=== PATIENT | female | born 1960 | race Caucasian/White ===

== ENCOUNTER 2024-02-25 10:38 | Observation (INO) ==
[2024-02-25] MEDS: NS 0.9% 1000 ml BAG 1,000 ML IV ONE (11:41)
[2024-02-25 11:51] LABS: ABS Lymphocytes 0.4 10^3/uL (1.0-4.8); ABS Monocytes 0.4 10^3/uL (0.0-0.9); ABS Neutrophils 7.4 10^3/uL (1.5-7.6); Eosinophil % 0.1 %; Hematocrit 36.4 % (35-45); Hemoglobin 12.8 g/dL (11.5-14.3); Lymphocyte % 5.1 %; Mean Corpuscular Hemoglobin 31.9 pg (27-33); Mean Corpuscular Hgb Conc 35.2 g/dL (31-36); Mean Corpuscular Volume 90.7 fL (80-97); Mean Platelet Volume 7.7 fL (7.5-11.2); Platelet Count 270 10^3/uL (150-450); Red Blood Count 4.01 10^6/uL (3.63-4.92); Red Cell Distribution Width 13.2 % (12-17); White Blood Count 8.2 10^3/uL (3.8-11.8)
[2024-02-25 12:24] LABS: Albumin/Globulin Ratio 1.3 (1-3); Calcium 9.1 mg/dL (8.6-10.3); Creatinine, Serum 0.94 mg/dL (0.51-0.95); Magnesium 1.7 mg/dL (1.9-2.7); Potassium 3.3 mmol/L (3.5-5.0); Total Bilirubin 0.4 mg/dL (0.2-1.0); eGFR CKD-EPI 68.6 (>60)
[2024-02-25 12:38] LABS: TSH Ultra Thyroid Stim Horm 1.8 mcIU/mL (0.34-5.60)
[2024-02-25] MEDS ORDERED: Albuterol/Ipratropium NEB.SOL (2.5/0.5 MG) 3 ML NEB.SOLN INH PRN (13:07)
[2024-02-25] MEDS: Magnesium Sulfate 2 gm BAG 2 GM/50 ML BAG IVPB ONE (13:21)
[2024-02-25] MEDS: Potassium Chlor 20 meq TAB.ER PO ONE ×2 (13:22→18:28)
[2024-02-25] MEDS: methylPREDNISolone SOD SUCC 125 mg 2 ML VIAL IV ONE (13:22)
[2024-02-25 13:28] LABS: High Sensitivity Troponin 1 Hr 57 pg/mL (<15)
[2024-02-25 13:43] LABS: Urine Appearance Clear; Urine Bilirubin Negative (Negative); Urine Blood Trace (Negative); Urine Color Light-Yellow; Urine Glucose Negative (Negative); Urine Ketones Negative (Negative); Urine Nitrite Negative (Negative); Urine Protein Negative (Negative); Urine Specific Gravity 1.012 (1.002-1.030); Urine Urobilinogen Negative (Negative); Urine pH 6.5 (5.0-8.0)
[2024-02-25] MEDS: cefTRIAXone 1 gm/50 mL D5W 1 GM/50 ML BAG IV SCH (16:21)
[2024-02-25] MEDS: Azithromycin 500 mg/250 ml NS 500 MG/250 ML BAG IVPB SCH (17:06)
[2024-02-25] MEDS: Albuterol/Ipratropium NEB.SOL (2.5/0.5 MG) 3 ML NEB.SOLN INH SCH (17:07)
[2024-02-25 17:53] LABS: C Reactive Protein 20.65 mg/L (<8.01)
[2024-02-25] MEDS: Enoxaparin 40 MG/0.4 ML SYR SUBCUT SCH (18:27)
[2024-02-25] MEDS: Lactated Ringers 1000 ml BAG 1,000 ML IV SCH (18:28)
[2024-02-25] MEDS: Mometasone/Formoter 100/5 MDI INH SCH (20:06)
[2024-02-25 21:01] LABS: Osmolality Serum 284 mOsm/kg (275-295)
[2024-02-25 22:23] LABS: Urine Osmo 172 mOsm/kg (150-1150)
[2024-02-26] MEDS: Albuterol/Ipratropium NEB.SOL (2.5/0.5 MG) 3 ML NEB.SOLN INH SCH (03:19)
[2024-02-26 04:58] LABS: ABS Lymphocytes 0.7 10^3/uL (1.0-4.8); ABS Monocytes 0.2 10^3/uL (0.0-0.9); ABS Neutrophils 4.9 10^3/uL (1.5-7.6); Hematocrit 30.3 % (35-45); Hemoglobin 10.7 g/dL (11.5-14.3); Lymphocyte % 11.8 %; Mean Corpuscular Hemoglobin 31.9 pg (27-33); Mean Corpuscular Hgb Conc 35.5 g/dL (31-36); Mean Platelet Volume 7.7 fL (7.5-11.2); Platelet Count 231 10^3/uL (150-450); Red Blood Count 3.36 10^6/uL (3.63-4.92); White Blood Count 5.8 10^3/uL (3.8-11.8)
[2024-02-26 06:05] LABS: Anion Gap 4 mmol/L (2-16); Blood Urea Nitrogen 10 mg/dL (6-24); CO2 Carbon Dioxide 27 mmol/L (22-32); Calcium 8.3 mg/dL (8.6-10.3); Chloride 100 mmol/L (101-111); Creatinine, Serum 0.71 mg/dL (0.51-0.95); Glucose 126 mg/dL (70-100); Magnesium 1.9 mg/dL (1.9-2.7); Sodium 131 mmol/L (135-145); eGFR CKD-EPI 96.1 (>60)
[2024-02-26] MEDS: Benzocaine/Menthol LOZ PO ONE (09:21)
[2024-02-26] MEDS: Magnesium Sulfate 2 gm BAG 2 GM/50 ML BAG IVPB ONE (15:03)
[2024-02-27 06:22] LABS: Hematocrit 30.1 % (35-45); Hemoglobin 10.6 g/dL (11.5-14.3); Mean Corpuscular Hemoglobin 32.1 pg (27-33); Mean Corpuscular Hgb Conc 35.3 g/dL (31-36); Mean Corpuscular Volume 90.8 fL (80-97); Mean Platelet Volume 7.7 fL (7.5-11.2); Platelet Count 232 10^3/uL (150-450); Red Blood Count 3.32 10^6/uL (3.63-4.92); Red Cell Distribution Width 12.9 % (12-17); White Blood Count 6.1 10^3/uL (3.8-11.8)
[2024-02-27 06:59] LABS: Calcium 8.6 mg/dL (8.6-10.3); Creatinine, Serum 0.71 mg/dL (0.51-0.95); Magnesium 1.9 mg/dL (1.9-2.7); Potassium 4.1 mmol/L (3.5-5.0); eGFR CKD-EPI 96.1 (>60)
[2024-02-27 09:59] VITALS: BP 124/59
[2024-02-27] MEDS: Magnesium Sulfate 2 gm BAG 2 GM/50 ML BAG IVPB ONE (10:41)
== END 2024-02-27 12:50 | disposition home or self-care (01) ==
LOC: ED 10:38 → EDHOLD 10:38 → SUATTDRO 15:11 → EDHOLD 17:47 → MEDTELE 18:09
PROVIDERS: ADMIT Student in an Organized Health Care Education/Training Program; ATTEND Internal Medicine